=== PATIENT | female | born 1995 | race African-American/Black ===

== ENCOUNTER 2019-06-13 08:53 | Emergency (ER) | payer OTHER ==
[~2019-06-13] VITALS: Ht 160 cm; Wt 63.5 kg
[2019-06-13 09:19] LABS: URINE BILIRUBIN NEGATIVE (Negative); URINE BLOOD NEGATIVE (Negative); URINE CLARITY CLEAR; URINE COLOR YELLOW; URINE GLUCOSE-RANDOM* NEGATIVE (Negative); URINE KETONES NEGATIVE (Negative); URINE NITRITE-REFLEX NEGATIVE (Negative); URINE PROTEIN (DIPSTICK) TRACE (Negative); URINE SPECIFIC GRAVITY 1.025 (1.005-1.035); URINE UROBILINOGEN 0.2 E.U./dl (0.2-1.0)
[2019-06-13 09:20] LABS: URINE LEUKOCYTES-REFLEX 2+ (Negative)
[2019-06-13 09:26] LABS: SQUAMOUS >10 Many /LPF (0-3)
[2019-06-13 09:27] LABS: CASTS None Seen /LPF (None Seen); CRYSTALS None Seen /LPF (None Seen)
[2019-06-13 09:28] LABS: URINE RBC None Seen /HPF (0-2)
[2019-06-13 09:52] LABS: CALCIUM 9.5 mg/dL (8.5-10.1)
[2019-06-13 09:58] LABS: ABSOLUTE NEUTROPHILS 8.2 thou/uL (1.4-8.2); BASOPHILS 0.4 % (0.0-2.0); EOSINOPHILS 0.4 % (0.0-3.0); HEMOGLOBIN 14.4 gm/dL (12.0-15.0); LYMPHOCYTES 16.8 % (24.0-44.0); MCHC 33.6 g/dL (28.0-37.0); MCV 98.2 fL (80.0-100.0); MONOCYTES 3.6 % (1.0-8.0); PLATELET COUNT 247 thou/uL (150-400); POLYS 78.8 % (36.0-66.0); RBC 4.38 mil/uL (4.20-5.00); WBC 10.5 thou/uL (4.0-11.0)
[2019-06-13 09:59] LABS: ALBUMIN 4.2 g/dL (3.4-5.0); POTASSIUM 4.5 mmol/L (3.5-5.1); TOTAL PROTEIN 8.1 g/dL (6.4-8.2)
[2019-06-13 10:28] LABS: URINE BILIRUBIN NEGATIVE (Negative); URINE BLOOD NEGATIVE (Negative); URINE CLARITY CLEAR; URINE COLOR YELLOW; URINE GLUCOSE-RANDOM* NEGATIVE (Negative); URINE KETONES TRACE (Negative); URINE NITRITE-REFLEX NEGATIVE (Negative); URINE PROTEIN (DIPSTICK) NEGATIVE (Negative); URINE UROBILINOGEN 0.2 E.U./dl (0.2-1.0)
[2019-06-13 10:30] LABS: URINE LEUKOCYTES-REFLEX 1+ (Negative)
[2019-06-13 10:44] LABS: CASTS None Seen /LPF (None Seen); CRYSTALS None Seen /LPF (None Seen); SQUAMOUS 4-10 Moderate /LPF (0-3)
[2019-06-13 10:46] LABS: URINE RBC None Seen /HPF (0-2); URINE WBC-REFLEX 6-15 Few /HPF (0-5)
[2019-06-13 10:49] LABS: BACTERIA-REFLEX 1-9 Few /HPF (None Seen)
[2019-06-13 11:00] VITALS: BP 147/88
[2019-06-13] MEDS ORDERED: ZOFRAN ODT4 MG PO (11:12)
== END 2019-06-13 11:26 | disposition home or self-care (01) ==
LOC: ER 08:53
PROVIDERS: Emergency Medicine
DX: R10.84 Generalized abdominal pain (principal); R11.10 Vomiting, unspecified